=== PATIENT | male | born 1955 | race Caucasian/White ===

== ENCOUNTER 2019-06-26 19:06 | Emergency (ER) | payer BC ==
[~2019-06-26] VITALS: Ht 182.9 cm; Wt 74.8 kg
[2019-06-26] MEDS ORDERED: MS Contin15 MG PO (20:35)
[2019-06-26] MEDS ORDERED: Hydrocodone-Ap1 EA20 PO (20:35)
[2019-06-26] MEDS ORDERED: METO100ER PO (20:35)
== END 2019-06-26 21:37 | disposition home or self-care (01) ==
LOC: ER 19:06
DX: S66.221A Laceration of extensor muscle, fascia and tendon of right thumb at wrist and hand level, initial encounter (principal); I10 Essential (primary) hypertension; Z79.899 Other long term (current) drug therapy; Z87.891 Personal history of nicotine dependence; Z23 Encounter for immunization; W26.0XXA Contact with knife, initial encounter
CPT/HCPCS: 12002; 90471; 90714; 99282-25

== ENCOUNTER 2019-06-29 11:32 | Day surgery (SDC) | payer BC ==
[~2019-06-29] VITALS: Ht 182.9 cm; Wt 77.2 kg
[~2019-06-29 11:32] MED LIST: Hydrocodone-Ap1 EA20 PO; METO100ER PO; MS Contin15 MG PO
--- NOTE | 2019-06-29 12:12 | NUR ---
Ambulatory in Day Surgery. Patient reports completing Chlorhexadine shower X2 prior to admission to hospital.Lungs clear T/O to Auscultation. History, Chart, Medications and Allergies reviewed before start of procedure.Pre-Op teaching done. Pt verbalizes understanding. Patient States Post-Procedure ride home has been arranged.
--- NOTE | 2019-06-29 16:25 | NUR ---
PT TOLERATED PO FOOD, FLUID AND PAIN MEDS. ABLE TO GET SELF DRESSED AND AMBULATING WITH A STEADY GAIT. Discharge instructions reviewed with patient. Patient verbalizes understanding. Copy given to patient to take home. Patient States Post-Procedure ride home has been arranged. Discharged via wheelchair to private car for ride home. ALL BELONINGS RETURNED WITH PATIENT.
== END 2019-06-29 23:06 | disposition home or self-care (01) ==
LOC: ORSCMMR 11:32 → SURS 11:33 → ORSCMMR 11:48
PROVIDERS: Orthopaedic Surgery
PROC: 0LQ70ZZ Repair Right Hand Tendon, Open Approach (ICD-10-PCS; principal; 2019-06-29 12:30)
DX: S66.221A Laceration of extensor muscle, fascia and tendon of right thumb at wrist and hand level, initial encounter (principal); F17.220 Nicotine dependence, chewing tobacco, uncomplicated
CPT/HCPCS: J0690; J1100; J2250; J2370; J2405; J2704; J3010; J7120

== ENCOUNTER 2021-09-10 11:32 | Day surgery (SDC) | payer OTHER ==
[~2021-09-10] VITALS: Ht 182.9 cm; Wt 78.4 kg
[~2021-09-10 11:32] MED LIST changes: +HYDACE10B PO; +MORP15ER PO; +MULTIPLE VITAM1 EACH PO; +OMEGA-3 + VITA200 ML PO; +POTASSIUM GLUCO99 M1 PO; +[UNRECOGNIZED DRUG - OTHER] PO
[2021-09-10] MEDS ORDERED: MAGCIT300 (12:03)
== END 2021-09-10 14:02 | disposition home or self-care (01) ==
LOC: ORSCSDS 11:32
PROVIDERS: Internal Medicine Gastroenterology
PROC: 0DBM8ZX Excision of Descending Colon, Via Natural or Artificial Opening Endoscopic, Diagnostic (ICD-10-PCS; principal; 2021-09-10 13:00)
DX: Z12.11 Encounter for screening for malignant neoplasm of colon (principal); K57.30 Diverticulosis of large intestine without perforation or abscess without bleeding; D12.4 Benign neoplasm of descending colon; I10 Essential (primary) hypertension; Z87.891 Personal history of nicotine dependence; Z79.899 Other long term (current) drug therapy
CPT/HCPCS: 88305; J2704; J7120

== ENCOUNTER → 2022-01-13 | Outpatient (CLI) | payer OTHER ==
[~2022-01-13] MED LIST changes: +MAGCIT300
[2022-01-23 07:10] LABS: 6-ACETYLMORPHINE Not Detected (.)
== END ==
LOC: LAB SHORT 13:17 → LAB 13:17
PROVIDERS: Family Medicine
DX: Z79.899 Other long term (current) drug therapy (principal)
CPT/HCPCS: G0480

== ENCOUNTER → 2024-04-14 | Outpatient (CLI) | payer OTHER | LOC: LAB 17:33 → LAB SHORT 17:33 | DX: Z51.81 Encounter for therapeutic drug level monitoring (principal); G89.4 Chronic pain syndrome; Z79.899 Other long term (current) drug therapy ==